=== PATIENT | male | born 1995 | race Caucasian/White ===

== ENCOUNTER → 2016-07-14 | Outpatient (CLI) | payer OTHER | LOC: M LAB 16:34 | PROVIDERS: ATTEND Nurse Practitioner Family | DX: C62.91 Malignant neoplasm of right testis, unspecified whether descended or undescended (principal) ==

== ENCOUNTER → 2016-07-14 | Outpatient (CLI) | payer OTHER ==
--- NOTE | 2016-07-14 18:21 | REP ---
CHEST, TWO VIEWS: HISTORY: Testicular cancer. COMPARISON: 11/12/2015 FINDINGS: The superior mediastinal structures are midline. The cardiac silhouette is unremarkable in size, shape, and position. The diaphragmatic surfaces of the lungs are regular, and the costophrenic angles are clear. The pulmonary [place] are clear. The imaged osseous structures are intact. No significant change from the prior exam, however, if pulmonary metastatic disease is a clinical concern, then contrast enhanced chest CT would be in order. IMPRESSION: There is no acute cardiopulmonary disease. Signed by Bola Reese DO 07/14/2016 07:11 P
== END ==
LOC: M RAD 16:41
PROVIDERS: ATTEND Nurse Practitioner
DX: C62.91 Malignant neoplasm of right testis, unspecified whether descended or undescended (principal)

== ENCOUNTER → 2016-08-11 | Outpatient (CLI) | payer OTHER ==
[~2016-08-11] MED LIST: GASTROGRAFIN SOLUTION 30ML (Q9963) As Ordered ONE; ISOVUE-370 76% 100ML VIAL (Q9967) As Ordered ONE
--- NOTE | 2016-08-12 07:23 | REP ---
CT ABDOMEN AND PELVIS WITH AND WITHOUT IV CONTRAST: TECHNIQUE: Axial noncontrast images through the abdomen followed by contrast-enhanced images through the abdomen and pelvis using 100 mL Isovue 370 intravenous contrast material, with coronal and sagittal reformations. COMPARISON: 11/12/2015. Visualized lung bases are clear. Liver, spleen, adrenals, pancreas and kidneys are normal in appearance. There is no hydronephrosis. No renal calculi are seen. There is no abdominal aortic aneurysm. Scattered subcentimeter periaortic lymph nodes are again seen without significant adenopathy in the abdomen or pelvis, nor in the inguinal regions. There is no free air or free fluid. There is no bowel wall thickening. The appendix is normal. I see no pelvic mass. Urinary bladder appears unremarkable. IMPRESSION: Essentially negative CT abdomen and pelvis. No suspicious adenopathy or other significant abnormality. Signed by Bulmaro Quintero MD 08/12/2016 07:44 P
== END ==
LOC: M RAD 14:34 → MERGE 17:00 → EDBD 17:00
PROVIDERS: ATTEND Physician Assistant
DX: C62.90 Malignant neoplasm of unspecified testis, unspecified whether descended or undescended (principal)
CPT/HCPCS: 74178; Q9963; Q9967

== ENCOUNTER → 2016-08-18 | Outpatient (CLI) | payer OTHER ==
[2016-08-18 13:59] LABS: BASO % 0.5 % (0.0-1.0); EOS # 0.1 K/mm3 (0.0-0.50); LARGE UNSTAINED CELL # 0.1 K/mm3 (0.0-0.4); LARGE UNSTAINED CELL % 1.6 % (0.0-4.0); LYMPH # 1.9 K/mm3 (1.5-6.5); LYMPH % 22.8 % (24.0-44.0); MEAN CORPUSCULAR HEMOGLOBIN 31.2 pg (27.0-33.0); MEAN CORPUSCULAR HGB CONC 34.2 g/dl (32.0-36.5); MEAN CORPUSCULAR VOLUME 91.1 fl (80.0-96.0); MONO # 0.4 K/mm3 (0.0-0.8); MONO % 4.9 % (0.0-5.0); NEUTROPHILS # 5.4 K/mm3 (1.8-7.7); NEUTROPHILS % 69.2 % (36.0-66.0); PLATELET COUNT, AUTOMATED 230 k/mm3 (150-450); RED CELL DISTRIBUTION WIDTH 11.8 % (11.5-14.5); WHITE BLOOD COUNT 7.9 K/mm3 (4.0-10.0)
[2016-08-18 14:29] LABS: ERYTHROCYTE SEDIMENTATION RATE 1 mm/hr (0-15)
[2016-08-18 14:31] LABS: THYROID PEROXIDASE ANTIBODY < 28.0 U/ML (<60.0)
[2016-08-18 14:46] LABS: ALBUMIN 4.3 GM/DL (3.2-5.2); ALBUMIN/GLOBULIN RATIO 1.48 (1.00-1.93); ALKALINE PHOSPHATASE 67 U/L (45-117); ALT/SGPT 27 U/L (12-78); ANION GAP 5 MEQ/L (8-16); AST/SGOT 22 U/L (15-37); BILIRUBIN,TOTAL 0.7 MG/DL (0.2-1.0); BLOOD UREA NITROGEN 14 MG/DL (7-18); CALCIUM LEVEL 8.6 MG/DL (8.5-10.1); CARBON DIOXIDE LEVEL 30 MEQ/L (21-32); CHLORIDE LEVEL 104 MEQ/L (98-107); COMPLEMENT C3 107 MG/DL (90-180); COMPLEMENT C4 22.6 MG/DL (10-40); CREATININE FOR GFR 0.92 MG/DL (0.70-1.30); FREE T4 1.14 NG/DL (0.76-1.46); GLOMERULAR FILTRATION RATE > 60.0 (>60); GLUCOSE, FASTING 83 MG/DL (70-105); IMMUNOGLOBULIN E 99.9 IU/ML (<100); SODIUM LEVEL 139 MEQ/L (136-145); TOTAL PROTEIN 7.2 GM/DL (6.4-8.2)
== END ==
LOC: M LAB 13:19
PROVIDERS: ATTEND Physician Assistant
DX: T78.3XXA Angioneurotic edema, initial encounter (principal); R53.81 Other malaise; J30.89 Other allergic rhinitis

== ENCOUNTER → 2016-09-05 | Outpatient (CLI) | payer OTHER ==
[~2016-09-05] MED LIST changes: +BENA25TA9 PO; -GASTROGRAFIN SOLUTION 30ML (Q9963) As Ordered ONE; -ISOVUE-370 76% 100ML VIAL (Q9967) As Ordered ONE; +PRED20TA PO
[2016-09-05 19:22] LABS: TOTAL PROTEIN 7.1 GM/DL (6.4-8.2)
[2016-09-08 11:17] LABS: ALBUMIN 4.62 GM/DL (3.29-5.55); GAMMA GLOBULIN % 11.7 % (11.1-18.8)
== END ==
LOC: M LAB 16:28
PROVIDERS: ATTEND Physician Assistant
DX: L29.9 Pruritus, unspecified (principal); R79.9 Abnormal finding of blood chemistry, unspecified

== ENCOUNTER 2016-09-12 07:04 | Emergency (ER) | payer OTHER ==
[~2016-09-12] VITALS: Ht 175.3 cm; Wt 72.7 kg
[2016-09-12] MEDS ORDERED: BENA25TA9 PO ×2 (07:12→09:24)
[2016-09-12] MEDS ORDERED: methylPREDNISolone INJ 125 MG/2 ML VIAL (J2930) IM ONE (07:45)
[2016-09-12] MEDS ORDERED: FAMOTIDINE 20 MG TAB PO ONE (07:45)
[2016-09-12] MEDS ORDERED: PRED20TA PO (09:24)
[2016-09-12 09:30] VITALS: BP 127/70
== END 2016-09-12 09:35 | disposition home or self-care (01) ==
LOC: M ED 07:45
DX: T78.3XXA Angioneurotic edema, initial encounter (principal); X58.XXXA Exposure to other specified factors, initial encounter; Y92.9 Unspecified place or not applicable; Y93.9 Activity, unspecified; Y99.9 Unspecified external cause status
CPT/HCPCS: 96372; 99282; J2930

== ENCOUNTER → 2016-09-21 | Outpatient (CLI) | payer OTHER ==
[~2016-09-21] MED LIST changes: +GASTROGRAFIN SOLUTION 30ML (Q9963) As Ordered ONE; +ISOVUE-370 76% 100ML VIAL (Q9967) As Ordered ONE
--- NOTE | 2016-09-22 05:07 | REP ---
Clinical: Hematuria. Technique: Axial precontrast, contrast enhanced, and delayed images of the abdomen and pelvis using 100 ml Isovue 370 intravenous contrast material with coronal and sagittal re-formations. Comparison: Of 03/18. Findings: Evaluation of the urinary tract system demonstrates normal kidneys, ureters and bladder. No evidence for perinephric stranding, hydroureteronephrosis, intrarenal or obstructing ureteral calculi. No renal cystic or mass lesions are identified. Lung bases clear. Visualized heart and pericardium normal. Liver, spleen, pancreas, gallbladder, and bilateral adrenal glands are normal. The enteric system is without obstruction or acute inflammatory process. Pelvis demonstrates normal bladder and age appropriate prostate/seminal vesicles. No ascites. No free air. No adenopathy. Abdominal aorta normal. Surrounding musculoskeletal structures are intact. 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 Impression: 1. Normal pre and postcontrast CT of the abdomen and pelvis. 2. Specifically, normal urinary tract system. Signed by Martín Sanchez MD 09/22/2016 04:58 A
== END ==
LOC: M RAD 17:20
PROVIDERS: ATTEND Urology
DX: C62.91 Malignant neoplasm of right testis, unspecified whether descended or undescended (principal); N50.811 Right testicular pain; R31.9 Hematuria, unspecified
CPT/HCPCS: 74178; Q9967

== ENCOUNTER → 2016-10-21 | Outpatient (CLI) | payer OTHER ==
[~2016-10-21] MED LIST changes: +BENA25TA10 PO; -BENA25TA9 PO; -GASTROGRAFIN SOLUTION 30ML (Q9963) As Ordered ONE; -ISOVUE-370 76% 100ML VIAL (Q9967) As Ordered ONE
== END ==
LOC: M LAB 09:13
PROVIDERS: ATTEND Physician Assistant
DX: T78.3XXD Angioneurotic edema, subsequent encounter (principal); X58.XXXD Exposure to other specified factors, subsequent encounter; Y92.89 Other specified places as the place of occurrence of the external cause; Y93.89 Activity, other specified; Y99.8 Other external cause status

== ENCOUNTER → 2017-08-22 | Outpatient (CLI) | payer OTHER ==
[~2017-08-22] MED LIST changes: -BENA25TA10 PO; +GASTROGRAFIN SOLUTION 30ML (Q9963) As Ordered; +ISOVUE-370 76% 100ML VIAL (Q9967) As Ordered; -PRED20TA PO
== END ==
LOC: M LAB 12:15
DX: N50.811 Right testicular pain (principal); R31.9 Hematuria, unspecified; C62.91 Malignant neoplasm of right testis, unspecified whether descended or undescended

== ENCOUNTER → 2017-08-22 | Outpatient (CLI) | payer OTHER ==
[2017-08-22 13:39] LABS: LDH LACTATE DEHYDROGENASE 230 U/L (87-241)
[2017-08-23 08:11] LABS: HCG SERUM TUMOR MARKER QUANT < 1 mIU/mL (0-3)
[2017-08-24 10:06] LABS: ALPHA FETOPROTEIN TUMOR QUANT < 1.3 NG/ML (<8.1)
== END ==
LOC: M LAB 12:28
DX: C62.91 Malignant neoplasm of right testis, unspecified whether descended or undescended (principal)